=== PATIENT | female | born 1990 | race Caucasian/White ===

== ENCOUNTER 2018-07-17 10:39 | Emergency (ER) | payer MEDICAID ==
[2018-07-17] MEDS ORDERED: Lidocaine 2% Viscous Solution 15 ML Cup PO ONE (11:06)
[2018-07-17] MEDS ORDERED: Benzocaine 20% Topical Spray UD MUCMEM ONE (11:06)
--- NOTE | 2018-07-17 11:34 | EDM.PDOC ---
ED HPI GENERAL MEDICAL PROBLEM - General Chief Complaint: General Stated Complaint: TOOTH INFECTION Time Seen by Provider: 07/17/18 11:04 Source of Information: Reports: Patient History Limitations: Reports: No Limitations - History of Present Illness INITIAL COMMENTS - FREE TEXT/NARRATIVE: HISTORY AND PHYSICAL: History of present illness: Patient is a 28-year-old female who presents to the ED today with concern of chest pain for 3 months. Patient states she has an appointment with the dentist in a few weeks and states that the tooth has a small crack in it and is causing her discomfort. She states she has taken ibuprofen and Anbesol [id number] without relief of her symptoms. Patient states she is also having vaginal discharge which she is concerned about an STD. Patient states she has had multiple sexual partners. Patient states she does have a history of bacterial vaginosis and that her complaints today are similar to when she was diagnosed with bacterial vaginosis. Patient denies any other symptoms at this time. Patient denies fever, chills, chest pain, shortness of breath, or cough. Denies headache, neck stiff ness, change in vision, syncope, or near syncope. Denies nausea, vomiting, abdominal pain, diarrhea, constipation, or dysuria. Has not noted any blood in urine or stool. Patient has been eating and drinking appropriately. Review of systems: As per history of present illness and below otherwise all systems reviewed and negative. Past medical history: As per history of present illness and as reviewed below otherwise noncontributory. Surgical history: As per history of present illness and as reviewed below otherwise noncontributory. Social history: See social history for further information Family history: As per history of present illness and as reviewed below otherwise noncontributory. Physical exam: General: Patient is alert, oriented, and in no acute distress. Patient sitting comfortably on exam table. HEENT: Atraumatic, normocephalic, pupils equal and reactive bilaterally, negative for conjunctival pallor or scleral icterus, mucous membranes moist, TMs normal bilaterally, throat clear, neck supple, nontender, trachea midline. No drooling or trismus noted. No meningeal signs. No hot potato voice noted. Tooth #15 is missing. Tooth #16 has a crack on it without an exposed nerve root. No evidence of infection or edema of the gumline or surrounding tooth. Generalized poor dentition. Lungs: Clear to auscultation, breath sounds equal bilaterally, chest nontender. Heart: S1S2, regular rate and rhythm without overt murmur Abdomen: Soft, nondistended, nontender. Negative for masses or hepatosplenomegaly. Negative for costovertebral tenderness. Pelvis: Stable nontender. Genitourinary: External genitalia grossly unremarkable. Mild amount of white discharge from the vaginal introitus. Rectal: Deferred. Skin: Intact, warm, dry. No lesions or rashes noted. Extremities: Atraumatic, negative for cords or calf pain. Neurovascular unremarkable. Neuro: Awake, alert, oriented. Cranial nerves II through XII unremarkable. Cerebellum unremarkable. Motor and sensory unremarkable throughout. Exam nonfocal. Notes: List of dentists provided with patient. Discussed the importance for follow-up with a primary care provider and with a dentist for definitive treatment. Voices understanding and is agreeable to plan of care. Denies any further questions or concerns at this time. Diagnostics: Gonorrhea, chlamydia, affirm Therapeutics: Dental balls, metronidazole Prescription: Diclofenac Impression: Fractured tooth Trichomoniasis vaginosis Plan: 1. Please take medication as prescribed. 2. Tylenol as directed and as needed for pain management. 3. "Tooth Balls" have been given to you; apply along the gumline every 2-3 hours as needed. Do not swallow these; external use only. 4. Follow-up with a dentist for definitive care. Follow follow-up with the primary care provider/womens health as discussed. Return to the ED as needed and as discussed. Definitive disposition and diagnosis as appropriate pending reevaluation and review of above. 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: Musculoskeletal History: Reports: None Neurological History: Reports: None Psychiatric History: Reports: None Endocrine/Metabolic History: Reports: None Hematologic History: Reports: None Immunologic History: Reports: None Oncologic (Cancer) History: Reports: None Dermatologic History: Reports: None - Infectious Disease History Infectious Disease History: Reports: None - Past Surgical History Head Surgeries/Procedures: Reports: None Social & Family History - Family History Family Medical History: Noncontributory - Tobacco Use Smoking Status *Q: Current Every Day Smoker Years of Tobacco use: 5 Packs/Tins Daily: 1 - Caffeine Use Caffeine Use: Reports: Coffee - Recreational Drug Use Recreational Drug Use: Yes Drug Use in Last 12 Months: Yes Recreational Drug Type: Reports: Methamphetamine Recreational Drug Last Use: 65 days ED ROS GENERAL - Review of Systems Review Of Systems: ROS reveals no pertinent complaints other than HPI. ED EXAM, GENERAL - Physical Exam Exam: See Below (See dictation) Course - Vital Signs Last Recorded V/S: Last Vital Signs Temp 36.2 C 07/17/18 11:10 Pulse 100 07/17/18 11:10 Resp 16 07/17/18 11:10 BP 115/71 07/17/18 11:10 Pulse Ox 98 07/17/18 11:10 - Orders/Labs/Meds Orders: Active Orders 24 hr Category Date Time Status CHLAMYDIA AND GONORRHEA BY [facility] Stat Lab 07/17/18 11:16 Ordered Labs: Laboratory Tests 07/17/18 Range/Units 11:35 Lulu species DNA NEGATIVE (NEGATIVE) Gardnerella DNA Probe NEGATIVE (NEGATIVE) Trichomonas DNA Probe POSITIVE H (NEGATIVE) Meds: Medications Discontinued Medications Generic Name Dose Route Start Last Admin Trade Name Freq PRN Reason Stop Dose Admin Benzocaine 2 each 07/17/18 11:06 07/17/18 11:41 Hurricaine One 20% MUCMEM 07/17/18 11:07 2 each ONETIME ONE Administration Lidocaine HCl 15 ml 07/17/18 11:06 07/17/18 11:41 Xylocaine 2% Viscous PO 07/17/18 11:07 15 ml ONETIME ONE Administration Metronidazole 2,000 mg 07/17/18 12:45 Metronidazole PO 07/17/18 12:46 NOW ONE Departure - Departure Time of Disposition: 12:47 Disposition: Home, Self-Care 01 Clinical Impression: Trichomoniasis of vagina Tooth fracture Qualifiers: Encounter type: initial encounter Fracture type: closed Qualified Code(s): S02.5XXA - Fracture of tooth (traumatic), initial encounter for closed fracture - Discharge Information Prescriptions: Diclofenac Sodium [Voltaren] 75 mg PO BIDMEALS PRN #12 tab.cr PRN Reason: Pain Instructions: Trichomoniasis Referrals: PCP,Unknown [Primary Care Provider] - Forms: ED Department Discharge Additional Instructions: The following information is given to patients seen in the emergency department who are being discharged to home. This information is to outline your options for follow-up care. We provide all patients seen in our emergency department with a follow-up referral. The need for follow-up, as well as the timing and circumstances, are variable depending upon the specifics of your emergency department visit. If you don't have a primary care physician on staff, we will provide you with a referral. We always advise you to contact your personal physician following an emergency department visit to inform them of the circumstance of the visit and for follow-up with them and/or the need for any referrals to a consulting specialist. The emergency department will also refer you to a specialist when appropriate. This referral assures that you have the opportunity for follow-up care with a specialist. All of these measure are taken in an effort to provide you with optimal care, which includes your follow-up. Under all circumstances we always encourage you to contact your private physician who remains a resource for coordinating your care. When calling for follow-up care, please make the office aware that this follow-up is from your recent emergency room visit. If for any reason you are refused follow-up, please contact the [facility] Emergency Department at and asked to speak to the emergency department charge nurse. [facility] [address] [place] [id number] [facility] [address] [place] [id number] [facility] [address] [place] [address] 1. Please take medication as prescribed. 2. Tylenol as directed and as needed for pain management. 3. "Tooth Balls" have been given to you; apply along the gumline every 2-3 hours as needed. Do not swallow these; external use only. 4. Follow-up with a dentist for definitive care. Follow follow-up with the primary care provider/womens health as discussed. Return to the ED as needed and as discussed. - My Orders Last 24 Hours: My Active Orders 07/17/18 11:16 CHLAMYDIA AND GONORRHEA BY [facility] Stat - Assessment/Plan Last 24 Hours: My Active Orders 07/17/18 11:16 CHLAMYDIA AND GONORRHEA BY [facility] Stat
[2018-07-17] MEDS ORDERED: metroNIDAZOLE 250 MG Tab PO ONE (12:45)
== END 2018-07-17 12:59 | disposition home or self-care (01) ==
LOC: MW.ED 10:39
DX: K03.81 Cracked tooth (principal); A59.01 Trichomonal vulvovaginitis; F17.210 Nicotine dependence, cigarettes, uncomplicated
CPT/HCPCS: 87480; 87491; 87510; 87591; 87660; 99283; A9270

== ENCOUNTER 2018-09-12 15:22 | Emergency (ER) | payer SELFPAY ==
--- NOTE | 2018-09-12 15:54 | EDM.PDOC ---
ED HPI GENERAL MEDICAL PROBLEM - General Chief Complaint: Skin Complaint Stated Complaint: RASH Time Seen by Provider: 09/12/18 15:27 Source of Information: Reports: Patient History Limitations: Reports: No Limitations - History of Present Illness INITIAL COMMENTS - FREE TEXT/NARRATIVE: History of present illness: []Patient has a history of eczema and has a flareup of her abdomen, scalp and under her breasts. She also has plaques on her scalp that are very itchy. She states she started getting them 3 months ago she moved to [place]. She also states that she used shampoo that helped for them was pink when she lived in [place], however. Review of systems: As per history of present illness and below otherwise all systems reviewed and negative. Past medical history: As per history of present illness and as reviewed below otherwise noncontributory. Surgical history: As per history of present illness and as reviewed below otherwise noncontributory. Social history: No reported history of drug or alcohol abuse. Family history: As per history of present illness and as reviewed below otherwise noncontributory. Physical exam: General: Well developed, well nourished in NAD HEENT: Atraumatic, normocephalic, pupils reactive, negative for conjunctival pallor or scleral icterus, mucous membranes moist, throat clear, neck supple, nontender, trachea midline. Lungs: Clear to auscultation, breath sounds equal bilaterally, chest nontender. Heart: S1S2, regular, negative for clicks, rubs, or JVD. Abdomen: NABS, Soft, nondistended, nontender. Negative for masses or hepatosplenomegaly. Negative for costovertebral tenderness. Pelvis: Stable nontender. Genitourinary: Deferred. Rectal: Deferred. Extremities: Atraumatic, negative for cords or calf pain. Neurovascular unremarkable. Neuro: Awake, alert, oriented. Cranial nerves II through XII unremarkable. Cerebellum unremarkable. Motor and sensory unremarkable throughout. Exam nonfocal. Skin: Multiple erythematous blotchy lesions on her lower abdomen and under her breasts. She also has thick scaly plaques on her scalp Diagnostics: None Therapeutics: None ED Course: Stable Impression: Eczema clear Prescriptions: Medrol dose pack Plan: Follow-up with life agent. Definitive disposition and diagnosis as appropriate pending reevaluation and review of above. 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: Musculoskeletal History: Reports: None Neurological History: Reports: None Psychiatric History: Reports: None Endocrine/Metabolic History: Reports: None Hematologic History: Reports: None Immunologic History: Reports: None Oncologic (Cancer) History: Reports: None Dermatologic History: Reports: None - Infectious Disease History Infectious Disease History: Reports: Chicken Pox - Past Surgical History Head Surgeries/Procedures: Reports: None Female Surgical History: Reports: Tubal Ligation Social & Family History - Family History Family Medical History: Noncontributory - Tobacco Use Smoking Status *Q: Current Every Day Smoker Years of Tobacco use: 9 Packs/Tins Daily: 0.2 - Caffeine Use Caffeine Use: Reports: Coffee - Recreational Drug Use Recreational Drug Use: No ED ROS GENERAL - Review of Systems Review Of Systems: See Below ED EXAM, SKIN/RASH Exam: See Below Course - Vital Signs Last Recorded V/S: Last Vital Signs Temp 98.2 F 09/12/18 15:37 Pulse 93 09/12/18 15:37 Resp 18 09/12/18 15:37 BP 124/86 09/12/18 15:37 Pulse Ox 96 09/12/18 15:37 Departure - Departure Time of Disposition: 15:51 Disposition: Home, Self-Care 01 Condition: Good Clinical Impression: Eczema intertrigo - Discharge Information *PRESCRIPTION DRUG MONITORING PROGRAM REVIEWED*: No *COPY OF PRESCRIPTION DRUG MONITORING REPORT IN PATIENT BELIA: No Prescriptions: methylPREDNISolone [Medrol] 4 mg PO ASDIRECTED #1 dosepk Instructions: Intertrigo, [id number] Referrals: PCP,Unknown [Primary Care Provider] - Forms: ED Department Discharge Additional Instructions: The following information is given to patients seen in the emergency department who are being discharged to home. This information is to outline your options for follow-up care. We provide all patients seen in our emergency department with a follow-up referral. The need for follow-up, as well as the timing and circumstances, are variable depending upon the specifics of your emergency department visit. If you don't have a primary care physician on staff, we will provide you with a referral. We always advise you to contact your personal physician following an emergency department visit to inform them of the circumstance of the visit and for follow-up with them and/or the need for any referrals to a consulting specialist. The emergency department will also refer you to a specialist when appropriate. This referral assures that you have the opportunity for follow-up care with a specialist. All of these measure are taken in an effort to provide you with optimal care, which includes your follow-up. Under all circumstances we always encourage you to contact your private physician who remains a resource for coordinating your care. When calling for follow-up care, please make the office aware that this follow-up is from your recent emergency room visit. If for any reason you are refused follow-up, please contact the [facility] Emergency Department at and asked to speak to the emergency department charge nurse. [facility] [address] [place] [id number]
== END 2018-09-12 16:09 | disposition home or self-care (01) ==
LOC: MW.ED 15:22
DX: L30.4 Erythema intertrigo (principal); F17.210 Nicotine dependence, cigarettes, uncomplicated
CPT/HCPCS: 99282

== ENCOUNTER 2020-01-17 07:32 | Emergency (ER) | payer MEDICAID ==
[2020-01-17] MEDS ORDERED: Ibuprofen 400 MG Tab PO ONE (08:03)
[2020-01-17] MEDS ORDERED: Acetaminophen 500 MG Tab PO ONE (08:03)
--- NOTE | 2020-01-17 08:06 | EDM.PDOC ---
[facility] GENERAL MEDICAL PROBLEM - General Chief Complaint: Abdominal Pain Stated Complaint: ABDOMINAL PAIN Time Seen by Provider: 01/17/20 07:33 Source of Information: Reports: Patient, Old Records History Limitations: Reports: No Limitations - History of Present Illness INITIAL COMMENTS - FREE TEXT/NARRATIVE: There is a very pleasant 29-year-old female with a past medical history of psoriasis presenting with chronic abdominal pain. She reports a 1 year history of intermittent bilateral lower abdominal pain described as "pressure". It radiates to her sides/flanks. She has not sought any medical attention up to this point. She states that the pain got worse this morning, which prompted her to come to the emergency department. She has not been taking any medications at home to treat her pain. She denies any fever, nausea, vomiting, diarrhea, bloody stools, vaginal bleeding or discharge, vaginal lesions, prior history of STIs, dysuria, hematuria. ROS: A 10-point review of systems was negative, except as noted in the HPI (or in the ROS section of this note). Past medical history: Reviewed, no additional pertinent history. Surgical history: Reviewed in system, no additional pertinent history. Social history: Reviewed in system, no additional pertinent history. Family history: Reviewed in system, no additional pertinent history. PHYSICAL EXAM Vital signs reviewed. Nursing notes reviewed. Constitutional: Awake, alert, non-distressed. Head: Normocephalic, atraumatic. Eyes: EOMI, conjunctiva normal, no discharge, no scleral icterus. Ears, Nose, Throat: External ears and nose normal, moist oral mucosa. Cardiovascular: 2+ radial pulse, capillary refill less than 2 seconds. Pulmonary: normal work of breathing, no accessory muscle use. Abdomen/GI: Soft, nontender, nondistended, no guarding or rigidity, no masses. No CVA tenderness. Musculoskeletal: No deformities. Integumentary: Appropriate color for ethnicity, warm, dry, no pallor or jaundice, no rash. Neurologic: Alert, answering questions appropriately, normal speech, no facial droop, moving all extremities well. Psychiatric: Appropriate mood and affect, normal thought process. This patient was seen and evaluated during the 2019 SARS-CoV-2 novel coronavirus pandemic period. Community viral transmission is ongoing at time of this encounter and the emergency department is operating under pandemic response procedures. Lower Bilateral Abdominal Pain Score (Numeric/FACES): 7 - Related Data Allergies Allergy/AdvReac Type Severity Reaction Status Date / Time No Known Allergies Allergy Verified 01/17/20 07:46 Home Meds: Home Meds Salicylic Acid [Psoriasis Medicated] 01/17/20 [History] Past Medical History - Past Health History Medical/Surgical History: Denies Medical/Surgical History HEENT History: Reports: None Cardiovascular History: Reports: None Respiratory History: Reports: None Gastrointestinal History: Reports: None Genitourinary History: Reports: None [employer] History: Reports: Musculoskeletal History: Reports: None Neurological History: Reports: None Psychiatric History: Reports: None Endocrine/Metabolic History: Reports: None Hematologic History: Reports: None Immunologic History: Reports: None Oncologic (Cancer) History: Reports: None Dermatologic History: Reports: Psoriasis - Infectious Disease History Infectious Disease History: Reports: Chicken Pox - Past Surgical History Head Surgeries/Procedures: Reports: None Female Surgical History: Reports: Tubal Ligation Social & Family History - Family History Family Medical History: No Pertinent Family History - Caffeine Use Caffeine Use: Reports: Coffee - Recreational Drug Use Recreational Drug Use: No ED ROS GENERAL - Review of Systems Review Of Systems: See Below ED EXAM, GI/ABD - Physical Exam Exam: See Below Course - Vital Signs Text/Narrative:: Patient hemodynamically stable, afebrile, well-appearing, looks nontoxic. Differential diagnosis includes but is not limited to: Chronic abdominal pain, functional abdominal pain, UTI, pyelonephritis, less likely ovarian cyst, less likely TOA, epiploic appendagitis, low suspicion for intra-abdominal surgical emergency or infection, and many others. 805: Urinalysis is bland and urine test is negative. Ordered acetaminophen and ibuprofen, labs, CT scan of the abdomen/pelvis. 903: CBC shows normal cell lines. Normal electrolytes and renal function. AST and ALT mildly elevated but not alarmingly so. Urinalysis is bland, no evidence of infection. Urine test is negative. Awaiting CT scan. 1020: CT abdomen/pelvis shows mild prolapse of the urinary bladder, dominant follicle versus small cysts in the left ovary, otherwise no acute or significant abnormal findings. Given that her lower abdominal pain is bilateral and not worse on one side compared to the other, I do not think we need to obtain a pelvic ultrasound study today. No evidence of infection, her abdomen is soft and nontender. Low suspicion for an intra-abdominal surgical emergency or infectious process at this point. Given chronicity of symptoms and negative work-up, patient is stable to dis charge home to follow-up with a primary care clinic. Recommended [id number] acetaminophen and ibuprofen as needed for pain along with a heating pad in the meantime. Plan: Patient is stable to discharge home with outpatient primary care clinic follow-up. Strict emergency department return precautions were provided, patient indicated understanding. All questions were answered prior to depa rture. Discharged in good condition. Last Recorded V/S: Last Vital Signs Temp 36.4 C 01/17/20 07:47 Pulse 71 01/17/20 07:47 Resp 15 01/17/20 07:47 BP 115/76 01/17/20 07:47 Pulse Ox 99 01/17/20 07:47 - Orders/Labs/Meds Orders: Active Orders 24 hr Category Date Time Status Nothing Per Oral Diet [DIET] Diet 01/17/20 Breakfast Active Labs: Laboratory Tests 01/17/20 01/17/20 01/17/20 Range/Units 07:35 07:35 08:15 WBC 5.46 (4.0-11.0) K/uL RBC 4.70 (4.30-5.90) M/uL Hgb 14.0 (12.0-16.0) g/dL Hct 42.5 (36.0-46.0) % MCV 90.4 (80.0-98.0) fL MCH 29.8 (27.0-32.0) pg MCHC 32.9 (31.0-37.0) g/dL RDW Std Deviation 42.3 (28.0-62.0) fl RDW Coeff of Quang 13 (11.0-15.0) % Plt Count 223 (150-400) K/uL MPV 9.50 (7.40-12.00) fL Neut % (Auto) 49.7 (48.0-80.0) % Lymph % (Auto) 31.5 (16.0-40.0) % [place] % (Auto) 9.3 (0.0-15.0) % Eos % (Auto) 8.8 H (0.0-7.0) % Baso % (Auto) 0.7 (0.0-1.5) % Neut # (Auto) 2.7 (1.4-5.7) K/uL Lymph # (Auto) 1.7 (0.6-2.4) K/uL Pickens # (Auto) 0.5 (0.0-0.8) K/uL Eos # (Auto) 0.5 (0.0-0.7) K/uL Baso # (Auto) 0.0 (0.0-0.1) K/uL Nucleated RBC % 0.0 /100WBC Nucleated RBCs # 0 K/uL Sodium (136-145) mmol/L Potassium (3.5-5.1) mmol/L Chloride (98-107) mmol/L Carbon Dioxide (21.0-32.0) mmol/L BUN (7.0-18.0) mg/dL Creatinine (0.6-1.0) mg/dL Est Cr Clr Drug Dosing mL/min Estimated GFR (MDRD) ml/min Glucose (74-106) mg/dL Calcium (8.5-10.1) mg/dL Total Bilirubin (0.2-1.0) mg/dL AST (15-37) IU/L ALT (14-63) IU/L Alkaline Phosphatase (46-116) U/L Total Protein (6.4-8.2) g/dL Albumin (3.4-5.0) g/dL Globulin (2.6-4.0) g/dL Albumin/Globulin Ratio (0.9-1.6) Urine Color YELLOW Urine Appearance CLEAR Urine pH 6.0 (5.0-8.0) Ur Specific [place] >= 1.030 (1.001-1.035) Urine Protein NEGATIVE (NEGATIVE) mg/dL Urine Glucose (UA) NEGATIVE (NEGATIVE) mg/dL Urine Ketones NEGATIVE (NEGATIVE) mg/dL Urine Occult Blood NEGATIVE (NEGATIVE) Urine Nitrite NEGATIVE (NEGATIVE) Urine Bilirubin NEGATIVE (NEGATIVE) Urine Urobilinogen 0.2 (<2.0) EU/dL Ur Leukocyte Esterase NEGATIVE (NEGATIVE) Urine HCG, Qual NEGATIVE (NEGATIVE) 01/17/20 Range/Units 08:15 WBC (4.0-11.0) K/uL RBC (4.30-5.90) M/uL Hgb (12.0-16.0) g/dL Hct (36.0-46.0) % MCV (80.0-98.0) fL MCH (27.0-32.0) pg MCHC (31.0-37.0) g/dL RDW Std Deviation (28.0-62.0) fl RDW Coeff of Quang (11.0-15.0) % Plt Count (150-400) K/uL MPV (7.40-12.00) fL Neut % (Auto) (48.0-80.0) % Lymph % (Auto) (16.0-40.0) % Pickens % (Auto) (0.0-15.0) % Eos % (Auto) (0.0-7.0) % Baso % (Auto) (0.0-1.5) % Neut # (Auto) (1.4-5.7) K/uL Lymph # (Auto) (0.6-2.4) K/uL Pickens # (Auto) (0.0-0.8) K/uL Eos # (Auto) (0.0-0.7) K/uL Baso # (Auto) (0.0-0.1) K/uL Nucleated RBC % /100WBC Nucleated RBCs # K/uL Sodium 140 (136-145) mmol/L Potassium 4.2 (3.5-5.1) mmol/L Chloride 106 (98-107) mmol/L Carbon Dioxide 28.6 (21.0-32.0) mmol/L BUN 15 (7.0-18.0) mg/dL Creatinine 0.7 (0.6-1.0) mg/dL Est Cr Clr Drug Dosing 92.10 mL/min Estimated GFR (MDRD) > 60.0 ml/min Glucose 109 H (74-106) mg/dL Calcium 9.0 (8.5-10.1) mg/dL Total Bilirubin 0.4 (0.2-1.0) mg/dL AST 51 H (15-37) IU/L ALT 117 H (14-63) IU/L Alkaline Phosphatase 57 (46-116) U/L Total Protein 7.7 (6.4-8.2) g/dL Albumin 3.8 (3.4-5.0) g/dL Globulin 3.9 (2.6-4.0) g/dL Albumin/Globulin Ratio 1.0 (0.9-1.6) Urine Color Urine Appearance Urine pH (5.0-8.0) Ur Specific [place] (1.001-1.035) Urine Protein (NEGATIVE) mg/dL Urine Glucose (UA) (NEGATIVE) mg/dL Urine Ketones (NEGATIVE) mg/dL Urine Occult Blood (NEGATIVE) Urine Nitrite (NEGATIVE) Urine Bilirubin (NEGATIVE) Urine Urobilinogen (<2.0) EU/dL Ur Leukocyte Esterase (NEGATIVE) Urine HCG, Qual (NEGATIVE) Meds: Medications Discontinued Medications Generic Name Dose Route Start Last Admin Trade Name Freq PRN Reason Stop Dose Admin Acetaminophen 1,000 mg 01/17/20 08:03 01/17/20 08:11 Tylenol Extra Strength PO 01/17/20 08:04 1,000 mg ONETIME ONE Administration Ibuprofen 400 mg 01/17/20 08:03 01/17/20 08:11 Motrin PO 01/17/20 08:04 400 mg ONETIME ONE Administration Iopamidol 100 ml 01/17/20 09:20 01/17/20 09:21 Isovue Multipack-370 (76%) IVPUSH 01/17/20 09:21 100 ml ONETIME ONE Administration Departure - Departure Time of Disposition: 10:21 Disposition: Home, Self-Care 01 Condition: Good Clinical Impression: Chronic bilateral lower abdominal pain - Discharge Information *PRESCRIPTION DRUG MONITORING PROGRAM REVIEWED*: Not Applicable *COPY OF PRESCRIPTION DRUG MONITORING REPORT IN PATIENT BELIA: Not Applicable Instructions: Abdominal Pain, Adult, Chronic Pain, Adult Referrals: [facility] - Family Practice [Provider Group] - 1 Week (For follow-up of symptoms.) Forms: ED Department Discharge Additional Instructions: You were seen in the emergency department for abdominal pain. At this point, your vital signs, blood work, urine test, and CT scan are all reassuring. I do not see a dangerous cause for your abdominal pain at this point. I am comfortable letting you go home to follow-up with the family medicine clinic in the next week or so for reevaluation. You can take [id number] acetaminophen or ibuprofen as directed on package for pain, you can also try heating pad. Warning signs to come back to the ER include: Worsening abdominal pain, lightheadedness, bloody stools or vomit, fever, or any other new or concerning symptoms. Please return the emergency department immediately if your symptoms worsen or if you feel worse. Thank you for choosing the [facility] emergency department in [place] for your medical needs today. It was a pleasure caring for you. The following information is given to patients seen in the emergency department who are being discharged. This information is to outline your options for follow-up care. We provide all patients seen in our emergency department with a follow-up referral. The need for follow-up, as well as the timing and circumstances, are variable depending upon the specifics of your emergency department visit. If you don't have a primary care physician on staff, we will provide you with a referral. We always advise you to contact your personal physician following an emergency department visit to inform them of the circumstance of the visit and for follow-up with them and/or the need for any referrals to a consulting specialist. The emergency department will also refer you to a specialist when appropriate. This referral assures that you have the opportunity for follow-up care with a specialist. All of these measure are taken in an effort to provide you with optimal care, which includes your follow-up. Under all circumstances we always encourage you to contact your private physician who remains a resource for coordinating your care. When calling for follow-up care, please make the office aware that this follow-up is from your recent emergency room visit. If for any reason you are refused follow-up, please contact the [facility] Emergency Department at and asked to speak to the emergency department charge nurse. If you do not have a primary care physician that is caring for you, you can contact these clinics below to set up an appointment to establish care: [facility] - Primary Care [address] [place], [place] [address], [place] [address] [facility] [address] [place] [address] Sepsis Event Note (ED) - Evaluation Sepsis Screening Result: No Definite Risk - Focused Exam Vital Signs: Vital Signs Temp Pulse Resp BP Pulse Ox 01/17/20 07:47 36.4 C 71 15 115/76 99 - My Orders Last 24 Hours: My Active Orders 01/17/20 Breakfast Nothing Per Oral Diet [DIET] - Assessment/Plan Last 24 Hours: My Active Orders 01/17/20 Breakfast Nothing Per Oral Diet [DIET]
[2020-01-17 08:55] LABS: BLOOD UREA NITROGEN,BUN 15 mg/dL (7.0-18.0); CARBON DIOXIDE,CO2 28.6 mmol/L (21.0-32.0); CHLORIDE,CL 106 mmol/L (98-107); GLUCOSE RANDOM 109 mg/dL (74-106); POTASSIUM,K 4.2 mmol/L (3.5-5.1); SODIUM,NA 140 mmol/L (136-145)
[2020-01-17] MEDS ORDERED: Iopamidol 755 MG/ML 500 ML Multipack Bottle IVPUSH ONE (09:20)
--- NOTE | 2020-01-17 09:49 | CT ---
INDICATION: Bilateral lower abdomen and pelvic pain. TECHNIQUE: CT abdomen and pelvis acquired with 100 cc Isovue 370 IV contrast. COMPARISON: None. FINDINGS: Lower chest: Unremarkable. Liver: Unremarkable. Normal in size and attenuation. No masses. Gallbladder and bile ducts: Unremarkable. No stones or inflammation. No biliary dilatation. Pancreas: Unremarkable. No mass or inflammation. Spleen: Unremarkable. Normal in size. No masses. Adrenal glands: Unremarkable. No nodules. Kidneys: Unremarkable. No masses, stones, or hydronephrosis. GI tract: Unremarkable. Normal in caliber. No sign of mass or inflammation. Normal appendix. Vasculature: Unremarkable. Mesenteric arteries are patent. Lymph nodes: No lymphadenopathy. Omentum/Peritoneum/Abdominal Wall: Unremarkable. No sign of mass or infiltration. No free air or significant free fluid. Pelvis: Mild prolapse of the urinary bladder. Dominant follicle versus small cyst is in the left ovary. Otherwise unremarkable pelvis. Bones: Unremarkable for age. IMPRESSION: 1. Mild urinary bladder prolapse and small cyst versus dominant follicle in the left ovary without evidence of rupture. 2. Remainder of the exam is unremarkable. No other finding to explain lower abdomen or pelvic pain. Please note that all CT scans at this facility use dose modulation, iterative reconstruction, and/or weight-based dosing when appropriate to reduce radiation dose to as low as reasonably achievable. Dictated by Arian Villarreal MD @ Jan 17 2020 9:40AM Signed by Dr. Arian Villarreal @ Jan 17 2020 9:49AM
== END 2020-01-17 10:49 | disposition home or self-care (01) ==
LOC: MW.ED 07:32
DX: R10.31 Right lower quadrant pain (principal); R10.32 Left lower quadrant pain; G89.29 Other chronic pain; R74.01 Elevation of levels of liver transaminase levels; R79.89 Other specified abnormal findings of blood chemistry; Z98.51 Tubal ligation status
CPT/HCPCS: 36415; 74177; 80053; 81003; 81025; 85025; 99284; A9270; Q9967; 99282

== ENCOUNTER 2020-04-19 10:05 | Emergency (ER) | payer MEDICAID ==
--- NOTE | 2020-04-19 10:23 | EDM.PDOC ---
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 She reports that yesterday she started her regular menses although had noticed it was quite heavier than normal. She has had chronic abdominal pain for approximately 10 years and has not really had this looked at at a primary care provider or specialist. She is not so much worried about today's abdominal pain but states it is more low pelvic discomfort and is worse with sex. Denies any recent injury, trauma or vigorous intercourse that would cause injury. She denies any vaginal discharge or concerns of STIs. Patient denies any fever, chills, headache, change in vision, syncope or near syncope. Denies any chest pain, back pain, shortness of breath or cough. Denies any abdominal pain, nausea, vomiting, diarrhea, constipation or dysuria. Has not noted any blood in urine or stool. Patient has been eating and drinking appropriately. Review of systems: As per history of present illness and below otherwise all systems reviewed and negative. Past medical history: As per history of present illness and as reviewed below otherwise noncontributory. Surgical history: As per history of present illness and as reviewed below otherwise noncontributory. Social history: See social history for further information Family history: As per history of present illness and as reviewed below otherwise noncontributory. Physical exam: General: Well developed and well nourished 30-year-old female. Alert and orientated x 3. Nontoxic in appearance and in no acute distress. Vital signs are stable and have been reviewed by me. Nursing notes were reviewed. HEENT: Atraumatic, normocephalic, pupils equal and reactive bilaterally, negative for conjunctival pallor or scleral icterus, mucous membranes moist, TMs normal bilaterally, throat clear, neck supple, nontender, trachea midline. No drooling or trismus noted. No meningeal signs. No hot potato voice noted. Lungs: Clear to auscultation bilaterally. No wheezes, rales, or rhonchi. Chest nontender. Normal work of breathing, no accessory muscles used. Heart: S1S2, regular rate and rhythm without overt murmur, gallops, or rubs. No JVD. No peripheral edema Abdomen: Soft, nondistended, nontender. Normoactive bowel sounds. Negative for masses or costovertebral tenderness. Genitourinary/Rectal: This was done with consent and a database designer at the bedside. Normal appearing external genitalia. Cervical os is closed with mild amount of blood in the vaginal vault. No obvious discharge is noted. Swab/cultures were sent to lab with patient consent. No cervical motion tenderness or adnexal tenderness. Skin: Intact, warm, dry. No lesions or rashes noted. Hematologic: No petechiae or purpra. Mucosa appropriate color and normal nail bed color and refill. Extremities: Atraumatic, moves all extremities per self without difficulty or deficits, negative for cords or calf pain. Neurovascular unremarkable. Neuro: Awake, alert, oriented. Cranial nerves II through XII unremarkable. Cerebellum unremarkable. Motor and sensory unremarkable throughout. Exam nonfocal. Psychiatric: Mood and affect are appropriate. Normal thought process. Answering questions appropriately. Notes: *This patient was seen and evaluated during the 2019 SARS-CoV-2 novel coronavirus pandemic period. Community viral transmission is ongoing at time of this encounter and the emergency department is operating under pandemic response procedures. Pelvic exam was done, she does not have significant vaginal bleeding. Although she is fairly confident that she has no concerns for STD she is agreeable to letting me obtain samples to send to lab. Lab work is within normal limits, she does have a history of elevated liver enzymes, this is better than her last lab draw. Ultrasound shows that the endometrium is thickened up to 14 millimeters but otherwise normal in appearance. The left ovary is not visualized. DENISE shows BV; will treat with flagyl. She states she has not seen a primary care provider or had any type of Pap smear that she can recall. I did encourage her to establish care with a primary care provider she states she does have chronic abdominal pain. Phone numbers have been given to her to set this up. I have talked with the patient about today's findings, in addition to providing specific details for plan of care. Reassessment at the time of disposition demonstrates that the patient is in no acute distress. The patient is stable for discharge, counseling was provided and we discussed in great detail signs and symptoms that would prompt them to return to the Emergency Department. Medication, follow up and supportive care measures were reviewed and discussed. Voices understanding and is agreeable to plan of care. Denies any further questions or concerns at this time. Diagnostics: CBC, CMP, UA, HCGU, Khoi/Chlam, DENISE Therapeutics: Flagyl Prescription: Flagyl Impression: Bacterial Vaginosis Plan: 1. NO sex during treatment of the BV (treatment will be ineffective). The Gonorrhea and Chlamydia are send outs, we will call you if those require treatment. I would like you for routine OBGYN care such as a PAP smear, which we don't do in the ED. 2. You can alternate Tylenol and ibuprofen as needed for pain and fever management. 4. If your symptoms should worsen, new symptoms develop or any of the signs and symptoms we discussed should arise please return to the emergency room or call 911 (if needed). Definitive disposition and diagnosis as appropriate pending reevaluation and review of above. 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: Musculoskeletal History: Reports: None Neurological History: Reports: None Psychiatric History: Reports: None Endocrine/Metabolic History: Reports: None Hematologic History: Reports: None Immunologic History: Reports: None Oncologic (Cancer) History: Reports: None Dermatologic History: Reports: Psoriasis - Infectious Disease History Infectious Disease History: Reports: Chicken Pox - Past Surgical History Head Surgeries/Procedures: Reports: None Female Surgical History: Reports: Tubal Ligation Social & Family History - Family History Family Medical History: No Pertinent Family History - Caffeine Use Caffeine Use: Reports: Coffee ED ROS GENERAL - Review of Systems Review Of Systems: Comprehensive ROS is negative, except as noted in HPI. ED EXAM, GI/ABD - Physical Exam Exam: See Below (See dictation) Course - Vital Signs Last Recorded V/S: Last Vital Signs Temp 98.2 F 04/19/20 10:10 Pulse 103 H 04/19/20 10:10 Resp 18 04/19/20 10:10 BP 142/93 H 04/19/20 10:10 Pulse Ox 96 04/19/20 10:10 - Orders/Labs/Meds Orders: Active Orders 24 hr Category Date Time Status Pelvis Non OB Comp [US] Stat Exams 04/19/20 10:24 Taken CHLAMYDIA AND GONORRHEA BY TMA Stat Lab 04/19/20 10:20 Received Labs: Laboratory Tests 04/19/20 04/19/20 04/19/20 Range/Units 10:20 10:20 10:20 WBC (4.0-11.0) K/uL RBC (4.30-5.90) M/uL Hgb (12.0-16.0) g/dL Hct (36.0-46.0) % MCV (80.0-98.0) fL MCH (27.0-32.0) pg MCHC (31.0-37.0) g/dL RDW Std Deviation (28.0-62.0) fl RDW Coeff of Quang (11.0-15.0) % Plt Count (150-400) K/uL MPV (7.40-12.00) fL Neut % (Auto) (48.0-80.0) % Lymph % (Auto) (16.0-40.0) % [place] % (Auto) (0.0-15.0) % Eos % (Auto) (0.0-7.0) % Baso % (Auto) (0.0-1.5) % Neut # (Auto) (1.4-5.7) K/uL Lymph # (Auto) (0.6-2.4) K/uL [place] # (Auto) (0.0-0.8) K/uL Eos # (Auto) (0.0-0.7) K/uL Baso # (Auto) (0.0-0.1) K/uL Nucleated RBC % /100WBC Nucleated RBCs # K/uL Sodium (136-145) mmol/L Potassium (3.5-5.1) mmol/L Chloride (98-107) mmol/L Carbon Dioxide (21.0-32.0) mmol/L BUN (7.0-18.0) mg/dL Creatinine (0.6-1.0) mg/dL Est Cr Clr Drug Dosing mL/min Estimated GFR (MDRD) ml/min Glucose (74-106) mg/dL Calcium (8.5-10.1) mg/dL Total Bilirubin (0.2-1.0) mg/dL AST (15-37) IU/L ALT (14-63) IU/L Alkaline Phosphatase (46-116) U/L Total Protein (6.4-8.2) g/dL Albumin (3.4-5.0) g/dL Globulin (2.6-4.0) g/dL Albumin/Globulin Ratio (0.9-1.6) Urine Color YELLOW Urine Appearance CLEAR Urine pH 6.0 (5.0-8.0) Ur Specific [place] 1.025 (1.001-1.035) Urine Protein NEGATIVE (NEGATIVE) mg/dL Urine Glucose (UA) NEGATIVE (NEGATIVE) mg/dL Urine Ketones NEGATIVE (NEGATIVE) mg/dL Urine Occult Blood LARGE H (NEGATIVE) Urine Nitrite NEGATIVE (NEGATIVE) Urine Bilirubin NEGATIVE (NEGATIVE) Urine Urobilinogen 0.2 (<2.0) EU/dL Ur Leukocyte Esterase NEGATIVE (NEGATIVE) Urine RBC 20-25 (0-2/HPF) Urine WBC 0-2 (0-5/HPF) Ur Epithelial Cells FEW (NONE-FEW) Urine Bacteria FEW (NEGATIVE) Urine Mucus MODERATE (NONE-MOD) Urine HCG, Qual NEGATIVE (NEGATIVE) Lulu species DNA NEGATIVE (NEGATIVE) Gardnerella DNA Probe POSITIVE H (NEGATIVE) Trichomonas DNA Probe NEGATIVE (NEGATIVE) 04/19/20 04/19/20 Range/Units 10:33 10:33 WBC 9.77 (4.0-11.0) K/uL RBC 4.93 (4.30-5.90) M/uL Hgb 15.0 (12.0-16.0) g/dL Hct 44.1 (36.0-46.0) % MCV 89.5 (80.0-98.0) fL MCH 30.4 (27.0-32.0) pg MCHC 34.0 (31.0-37.0) g/dL RDW Std Deviation 40.9 (28.0-62.0) fl RDW Coeff of Quang 13 (11.0-15.0) % Plt Count 219 (150-400) K/uL MPV 9.60 (7.40-12.00) fL Neut % (Auto) 75.2 (48.0-80.0) % Lymph % (Auto) 14.7 L (16.0-40.0) % [place] % (Auto) 6.0 (0.0-15.0) % Eos % (Auto) 3.7 (0.0-7.0) % Baso % (Auto) 0.4 (0.0-1.5) % Neut # (Auto) 7.3 H (1.4-5.7) K/uL Lymph # (Auto) 1.4 (0.6-2.4) K/uL [place] # (Auto) 0.6 (0.0-0.8) K/uL Eos # (Auto) 0.4 (0.0-0.7) K/uL Baso # (Auto) 0.0 (0.0-0.1) K/uL Nucleated RBC % 0.0 /100WBC Nucleated RBCs # 0 K/uL Sodium 138 (136-145) mmol/L Potassium 3.8 (3.5-5.1) mmol/L Chloride 103 (98-107) mmol/L Carbon Dioxide 24.5 (21.0-32.0) mmol/L BUN 12 (7.0-18.0) mg/dL Creatinine 0.7 (0.6-1.0) mg/dL Est Cr Clr Drug Dosing 91.25 mL/min Estimated GFR (MDRD) > 60.0 ml/min Glucose 111 H (74-106) mg/dL Calcium 8.8 (8.5-10.1) mg/dL Total Bilirubin 0.7 (0.2-1.0) mg/dL AST 50 H (15-37) IU/L ALT 93 H (14-63) IU/L Alkaline Phosphatase 55 (46-116) U/L Total Protein 8.1 (6.4-8.2) g/dL Albumin 3.8 (3.4-5.0) g/dL Globulin 4.3 H (2.6-4.0) g/dL Albumin/Globulin Ratio 0.9 (0.9-1.6) Urine Color Urine Appearance Urine pH (5.0-8.0) Ur Specific [place] (1.001-1.035) Urine Protein (NEGATIVE) mg/dL Urine Glucose (UA) (NEGATIVE) mg/dL Urine Ketones (NEGATIVE) mg/dL Urine Occult Blood (NEGATIVE) Urine Nitrite (NEGATIVE) Urine Bilirubin (NEGATIVE) Urine Urobilinogen (<2.0) EU/dL Ur Leukocyte Esterase (NEGATIVE) Urine RBC (0-2/HPF) Urine WBC (0-5/HPF) Ur Epithelial Cells (NONE-FEW) Urine Bacteria (NEGATIVE) Urine Mucus (NONE-MOD) Urine HCG, Qual (NEGATIVE) Lulu species DNA (NEGATIVE) Gardnerella DNA Probe (NEGATIVE) Trichomonas DNA Probe (NEGATIVE) Meds: Medications Discontinued Medications Generic Name Dose Route Start Last Admin Trade Name Freq PRN Reason Stop Dose Admin Metronidazole 500 mg 04/19/20 11:32 Metronidazole PO 04/19/20 11:33 ONETIME ONE Departure - Departure Time of Disposition: 12:06 Disposition: Home, Self-Care 01 Clinical Impression: Bacterial vaginosis - Discharge Information Prescriptions: metroNIDAZOLE [Flagyl] 500 mg PO BID 7 Days #14 tab Instructions: Bacterial Vaginosis, [id number] Referrals: PCP,None [Primary Care Provider] - Forms: ED Department Discharge Additional Instructions: The following information is given to patients seen in the emergency department who are being discharged to home. This information is to outline your options for follow-up care. We provide all patients seen in our emergency department with a follow-up referral. The need for follow-up, as well as the timing and circumstances, are variable depending upon the specifics of your emergency department visit. If you don't have a primary care physician on staff, we will provide you with a referral. We always advise you to contact your personal physician following an emergency department visit to inform them of the circumstance of the visit and for follow-up with them and/or the need for any referrals to a consulting specialist. The emergency department will also refer you to a specialist when appropriate. This referral assures that you have the opportunity for follow-up care with a specialist. All of these measure are taken in an effort to provide you with optimal care, which includes your follow-up. Under all circumstances we always encourage you to contact your private physician who remains a resource for coordinating your care. When calling for follow-up care, please make the office aware that this follow-up is from your recent emergency room visit. If for any reason you are refused follow-up, please contact the [facility] Emergency Department at and asked to speak to the emergency department charge nurse. [facility] [address] [place] [id number] [facility] [address] [place] [id number] Thank you for choosing the [facility] emergency department in [place] for your medical needs today. It was a pleasure caring for you. Today you were seen in the emergency department for bacterial vaginosis. 1. NO sex during treatment of the BV (treatment will be ineffective). The Gonorrhea and Chlamydia are send outs, we will call you if those require treatment. I would like you for routine OBGYN care such as a PAP smear, which we don't do in the ED. 2. You can alternate Tylenol and ibuprofen as needed for pain and fever management. 4. If your symptoms should worsen, new symptoms develop or any of the signs and symptoms we discussed should arise please return to the emergency room or call 911 (if needed). Sepsis Event Note (ED) - Focused Exam Vital Signs: Vital Signs Temp Pulse Resp BP Pulse Ox 04/19/20 10:10 98.2 F 103 H 18 142/93 H 96 - My Orders Last 24 Hours: My Active Orders 04/19/20 10:20 CHLAMYDIA AND GONORRHEA BY TMA Stat 04/19/20 10:24 Pelvis Non OB Comp [US] Stat - Assessment/Plan Last 24 Hours: My Active Orders 04/19/20 10:20 CHLAMYDIA AND GONORRHEA BY TMA Stat 04/19/20 10:24 Pelvis Non OB Comp [US] Stat
[2020-04-19 11:06] LABS: BLOOD UREA NITROGEN,BUN 12 mg/dL (7.0-18.0); CARBON DIOXIDE,CO2 24.5 mmol/L (21.0-32.0); CHLORIDE,CL 103 mmol/L (98-107); GLUCOSE RANDOM 111 mg/dL (74-106); POTASSIUM,K 3.8 mmol/L (3.5-5.1); SODIUM,NA 138 mmol/L (136-145)
[2020-04-19] MEDS ORDERED: metroNIDAZOLE 250 MG Tab PO ONE (11:32)
--- NOTE | 2020-04-19 12:03 | US ---
INDICATION: Heavy menses, pain TECHNIQUE: Ultrasound pelvis transvaginal only COMPARISON: None FINDINGS: Uterus: 9.3 centimeter x 5.7 centimeter x 5.4 centimeter. Normal echotexture of the myometrium. No masses. Endometrium: The endometrium measures 14 mm in thickness. No sign of endometrial mass or fluid. Right ovary: 3.0 centimeter x 2.1 centimeter x 2.3 centimeter no ovarian or adnexal masses. Normal arterial and venous blood flow. Left ovary: The left ovary is not visualized. Cul-de-sac: No significant free fluid. IMPRESSION: The endometrium is thickened up to 14 millimeters but otherwise normal in appearance. The left ovary is not visualized. Dictated by Tomer Hernandez MD @ Apr 19 2020 11:53AM Signed by Dr. Tomer Hernandez @ Apr 19 2020 12:02PM
[2020-04-20 15:07] LABS: C.TRACHOMATIS BY TMA Negative (Negative); N.GONORRHOEAE BY TMA Negative (Negative)
== END 2020-04-19 12:19 | disposition home or self-care (01) ==
LOC: MW.ED 10:05
DX: N76.0 Acute vaginitis (principal); B96.89 Other specified bacterial agents as the cause of diseases classified elsewhere
CPT/HCPCS: 36415; 76856; 76856-26; 80053; 81001; 81025; 85025; 87480; 87491; 87510; 87591; 87660; 99283; 99284-25

== ENCOUNTER 2020-05-04 07:19 | Day surgery (SDC) | payer MEDICAID ==
[2020-05-01 11:26] LABS: BLOOD UREA NITROGEN,BUN 15 mg/dL (7.0-18.0); CARBON DIOXIDE,CO2 27.3 mmol/L (21.0-32.0); CHLORIDE,CL 104 mmol/L (98-107); GLUCOSE RANDOM 92 mg/dL (74-106); POTASSIUM,K 4.7 mmol/L (3.5-5.1); SODIUM,NA 139 mmol/L (136-145)
[~2020-05-04 07:19] MED LIST: Lactated Ringers 1,000 ML IV SCH; Sodium Chloride 0.9% 10 ML SDV IV PRN; Sodium Chloride 0.9% 10 ML Syringe FLUSH PRN; Sodium Chloride 0.9% 2.5 ML Syringe FLUSH PRN; ceFAZolin 1 GM in Premix Bag 1 BAG IV ONE
[2020-05-04] MEDS ORDERED: Dexamethasone 4 MG/ML 5 ML MDV ONE (07:34)
[2020-05-04] MEDS ORDERED: Rocuronium Bromide 50 MG/5 ML Syringe ONE (07:34)
[2020-05-04] MEDS ORDERED: Ondansetron 4 MG/2 ML SDV ONE (07:34)
[2020-05-04] MEDS ORDERED: Lidocaine 2% 5 ML SDV ONE (07:34)
[2020-05-04] MEDS ORDERED: fentaNYL 250 MCG/5 ML SDV ONE (07:35)
[2020-05-04] MEDS ORDERED: Midazolam 1 MG/ML 2 ML SDV ONE (07:35)
[2020-05-04] MEDS ORDERED: Propofol 200 MG/20 ML SDV ONE ×2 (07:35→09:56)
[2020-05-04] MEDS ORDERED: Scopolamine 1.5 MG Transdermal Patch TRDERM PRN (07:51)
--- NOTE | 2020-05-04 07:53 | PCM.PREANE ---
Preanesthetic Assessment - Anesthesia/Transfusion/Family Hx Anesthesia History: Prior Anesthesia Without Reaction Family History of Anesthesia Reaction: No Transfusion History: No Prior Transfusion(s) Intubation History: Unknown - Review of Systems General: No Symptoms Pulmonary: No Symptoms Cardiovascular: No Symptoms Gastrointestinal: Abdominal Pain Neurological: No Symptoms Other: Reports: None - Physical Assessment Height: 5 ft 2 in Weight: 83.915 kg ASA Class: 2 Mental Status: Alert & Oriented x3 Airway Class: Mallampati = 2 Dentition: Reports: Normal Dentition Thyro-Mental Finger Breadths: 3 Mouth Opening Finger Breadths: 3 (forked tongue) ROM/Head Extension: Full Lungs: Clear to Auscultation, Normal Respiratory Effort Cardiovascular: Regular Rate, Regular Rhythm - Lab Values: Laboratory Last Values WBC 5.48 K/uL (4.0-11.0) 05/01/20 10:47 RBC 4.75 M/uL (4.30-5.90) 05/01/20 10:47 Hgb 14.3 g/dL (12.0-16.0) 05/01/20 10:47 Hct 43.4 % (36.0-46.0) 05/01/20 10:47 MCV 91.4 fL (80.0-98.0) 05/01/20 10:47 MCH 30.1 pg (27.0-32.0) 05/01/20 10:47 MCHC 32.9 g/dL (31.0-37.0) 05/01/20 10:47 RDW Std Deviation 43.4 fl (28.0-62.0) 05/01/20 10:47 RDW Coeff of Quang 13 % (11.0-15.0) 05/01/20 10:47 Plt Count 221 K/uL (150-400) 05/01/20 10:47 MPV 9.80 fL (7.40-12.00) 05/01/20 10:47 Nucleated RBC % 0.0 /100WBC 05/01/20 10:47 Nucleated RBCs # 0 K/uL 05/01/20 10:47 Sodium 139 mmol/L (136-145) 05/01/20 10:47 Potassium 4.7 mmol/L (3.5-5.1) 05/01/20 10:47 Chloride 104 mmol/L (98-107) 05/01/20 10:47 Carbon Dioxide 27.3 mmol/L (21.0-32.0) 05/01/20 10:47 BUN 15 mg/dL (7.0-18.0) 05/01/20 10:47 Creatinine 0.8 mg/dL (0.6-1.0) 05/01/20 10:47 Est Cr Clr Drug Dosing 79.85 mL/min 05/01/20 10:47 Estimated GFR (MDRD) > 60.0 ml/min 05/01/20 10:47 Glucose 92 mg/dL (74-106) 05/01/20 10:47 Calcium 9.0 mg/dL (8.5-10.1) 05/01/20 10:47 HCG, Qual NEGATIVE (NEG) 05/01/20 10:47 Blood Type O NEGATIVE 05/01/20 10:50 Antibody Screen NEGATIVE 05/01/20 10:50 - Allergies Allergies/Adverse Reactions: Allergies Allergy/AdvReac Type Severity Reaction Status Date / Time No Known Allergies Allergy Verified 04/19/20 10:30 - Blood Blood Available: No - Anesthesia Plan Pre-Op Medication Ordered: None - Acknowledgements Anesthesia Type Planned: General Anesthesia Pt an Appropriate Candidate for the Planned Anesthesia: Yes Alternatives and Risks of Anesthesia Discussed w Pt/Guardian: Yes Pt/Guardian Understands and Agrees with Anesthesia Plan: Yes PreAnesthesia Questionnaire - Past Health History Medical/Surgical History: Denies Medical/Surgical History HEENT History: Reports: None Cardiovascular History: Reports: None Respiratory History: Reports: None Gastrointestinal History: Reports: GERD, Other (See Below) Other Gastrointestinal History: intermittent N&V Genitourinary History: Reports: UTI, 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: Reports: Dysfunctional Uterine Bleeding, Musculoskeletal History: Reports: None Neurological History: Reports: None Psychiatric History: Reports: None Endocrine/Metabolic History: Reports: Obesity/BMI 30+ (BMI 33.8) Hematologic History: Reports: None Immunologic History: Reports: None Oncologic (Cancer) History: Reports: None Dermatologic History: Reports: Psoriasis - Infectious Disease History Infectious Disease History: Reports: Chicken Pox - Past Surgical History Head Surgeries/Procedures: Reports: None HEENT Surgical History: Reports: None Cardiovascular Surgical History: Reports: None Respiratory Surgical History: Reports: None GI Surgical History: Reports: EGD Female Surgical History: Reports: Tubal Ligation Endocrine Surgical History: Reports: None Neurological Surgical History: Reports: None Musculoskeletal Surgical History: Reports: None Oncologic Surgical History: Reports: None Dermatological Surgical History: Reports: None - SUBSTANCE USE Tobacco Use Status *Q: Current Every Day Tobacco User (1 ppd) Tobacco Use Within Last Twelve Months: Cigarettes - HOME MEDS Home Medications: Home Meds Ibuprofen 800 mg PO BID PRN #30 tablet 04/19/20 [Rx] Risankizumab-Rzaa [Skyrizi] 2 injection IM ASDIRECTED 04/28/20 [History] - CURRENT (IN HOUSE) MEDS Current Meds: Current Medications Lactated Ringer's (Ringers, Lactated) 1,000 mls @ 500 mls/hr IV BOLUS QASIM Lactated Ringer's (Ringers, Lactated) 1,000 mls @ 125 mls/hr IV ASDIRECTED QASIM Sodium Chloride (Saline Flush) 2.5 ml FLUSH ASDIRECTED PRN PRN Reason: Keep Vein Open Sodium Chloride (Normal Saline) 10 ml IV ASDIRECTED PRN PRN Reason: IV Use Discontinued Medications Dexamethasone (Dexamethasone) Confirm Administered Dose 20 mg .ROUTE .STK-MED ONE Stop: 05/04/20 07:35 Fentanyl (Sublimaze) Confirm Administered Dose 250 mcg .ROUTE .STK-MED ONE Stop: 05/04/20 07:36 Cefazolin Sodium/Dextrose 1 gm (/ Premix) 50 mls @ 100 mls/hr IV ONETIME ONE Stop: 05/01/20 10:38 Lidocaine (Xylocaine-Mpf 2%) Confirm Administered Dose 5 ml .ROUTE .STK-MED ONE Stop: 05/04/20 07:35 Midazolam HCl (Versed 1 Mg/Ml) Confirm Administered Dose 2 mg .ROUTE .STK-MED ONE Stop: 05/04/20 07:36 Ondansetron HCl (Zofran) Confirm Administered Dose 4 mg .ROUTE .STK-MED ONE Stop: 05/04/20 07:35 Propofol (Diprivan 20 Ml) Confirm Administered Dose 400 mg .ROUTE .STK-MED ONE Stop: 05/04/20 07:36 Rocuronium [place] (Rocuronium [place]) Confirm Administered Dose 50 mg .ROUTE .STK-MED ONE Stop: 05/04/20 07:35
[2020-05-04] MEDS ORDERED: Fluorescein 5 ML Vial ONE (08:50)
[2020-05-04] MEDS ORDERED: diphenhydrAMINE 50 MG/ML SDV ONE (09:18)
[2020-05-04] MEDS ORDERED: Furosemide 40 MG/4 ML VIAL ONE (09:31)
[2020-05-04] MEDS ORDERED: Glycopyrrolate 0.2 MG/ML SDV ONE ×2 (09:36→09:41)
[2020-05-04] MEDS ORDERED: Ketorolac 30 MG/ML SDV ONE (10:32)
[2020-05-04] MEDS ORDERED: Octyl 2-Cyanoacrylate 1 Tube ONE (10:36)
[2020-05-04] MEDS ORDERED: Promethazine 25 MG/ML SDV IM PRN (10:43)
[2020-05-04] MEDS ORDERED: Morphine 4 MG/ML Syringe IVPUSH PRN (10:43)
[2020-05-04] MEDS ORDERED: Acetaminophen/oxyCODONE 325-5 MG Tab PO PRN (10:43)
[2020-05-04] MEDS ORDERED: Ondansetron 4 MG/2 ML SDV IVPUSH PRN (10:43)
[2020-05-04] MEDS ORDERED: Ketorolac 30 MG/ML SDV IVPUSH ONE (10:43)
--- NOTE | 2020-05-04 10:47 | PCM.OPNOTE ---
- General Post-Op/Procedure Note Date of Surgery/Procedure: 05/04/20 Operative Procedure(s): TLH,BS and Cysto Post-Op Diagnosis: Same Anesthesia Technique: General LMA Primary Surgeon: Fred Candelario EBL in mLs: 75 Complications: None Condition: Good
[2020-05-04] MEDS ORDERED: HYDROmorphone 1 MG/ML Syringe IVPUSH PRN (11:14)
[2020-05-04] MEDS ORDERED: HYDROmorphone 2 MG/ML Syringe ONE (11:20)
[2020-05-04] MEDS: fentaNYL 100 MCG/2 ML SDV IVPUSH PRN ×2 (11:48→11:53)
--- NOTE | 2020-05-04 12:24 | PCM.POSTAN ---
POST ANESTHESIA ASSESSMENT - MENTAL STATUS Mental Status: Alert, Oriented - VITAL SIGNS Vital Signs: Last Vital Signs Temp 36.4 C 05/04/20 10:48 Pulse 88 05/04/20 12:00 Resp 17 05/04/20 12:00 BP 106/74 05/04/20 12:00 Pulse Ox 93 L 05/04/20 12:00 - RESPIRATORY Respiratory Status: Respiratory Rate WNL, Airway Patent, O2 Saturation Stable - CARDIOVASCULAR CV Status: Pulse Rate WNL, Blood Pressure Stable - GASTROINTESTINAL GI Status: No Symptoms - PAIN Pain Score: 5 - POST OP HYDRATION Hydration Status: Adequate & Stable
[2020-05-04] MEDS: Acetaminophen/oxyCODONE 325-5 MG Tab PO PRN ×3 (13:21→22:30)
--- NOTE | 2020-05-04 14:03 | OR ---
SURGEON: Fred Candelario MD DATE OF PROCEDURE: 05/04/2020 PREOPERATIVE DIAGNOSES: Menometrorrhagia, pelvic pain. POSTOPERATIVE DIAGNOSES: Menometrorrhagia, pelvic pain. OPERATION PERFORMED: Diagnostic laparoscopy, total laparoscopic hysterectomy, laparoscopic bilateral salpingectomy preserving both ovary, and cystoscopy. 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 ANESTHESIA: General with endotracheal intubation, Sofia Younger and Dr. Burt. ESTIMATED BLOOD LOSS: 75 mL. COMPLICATIONS: None. FINDINGS: Pelvic adhesion from her previous section. Uterus is mildly enlarged, about 11- to 12-week size. The patient is status post bilateral tubal ligation. INDICATIONS FOR SURGERY: [place] referred to the admit note. PROCEDURE IN DETAIL: The patient was brought to the OR, properly identified, and after adequate level of anesthesia, the patient was placed in lithotomy position, prepped and draped in sterile fashion as usual with an access to the abdomen and the vagina. Garcia catheter was placed in the bladder and the [employer] manipulator placed in the uterus for manipulation. The operation shifted abdominally. Stab wound done beneath the umbilicus. The Veress was placed in the peritoneal cavity and that cavity was insufflated with sufficient amount of carbon dioxide, and then utilizing the Visiport technique, a central trocar was placed beneath the umbilicus. Once we were in the peritoneal cavity and it was safe and there was no organ injury, a 10/12 trocar placed in the left iliac fossa and a 5 mm trocar in the right iliac fossa under direct vision. Operation started by inspecting the landmark of the pelvis and the anatomy laparoscopically. Once we were familiar with all the landmark and the anatomy, the procedure started. The superior pedicle taken with the Braden Harmonic scalpel and the remnant of the tubes included with the specimen and then the broad ligament from both sides coagulated and transected and then the anterior leaf of the broad dissected downward medially, and then with sharp and blunt utilizing the Harmonic instrument, the bladder totally dissected away from the operative field and the surgeon could easily feel the manipulator through the vagina at this time. The uterine vessel was coagulated and transected utilizing the Braden Harmonic scalpel from both sides at the level of the manipulator, and once was that done, then the vaginal incision using the Harmonic scalpel was done in a circular manner at the edge of the manipulator detaching the cervix from its attachment to the vagina. The uterus and its appendages were removed vaginally and then pneumoperitoneum re-established by placing vaginal pack in the vagina. Inspection of the operative field, there showed no oozing, no bleeding. Thorough irrigation again to ascertain there was no bleeding. We proceeded to close the vaginal cuff laparoscopically using 2-0 PDS interrupted suture. While we were doing that, we asked the Anesthesia personnel to give the patient fluorescein, and after closing the vaginal cuff, the abdomen was deflated, cystoscopy was performed. The bladder was intact. Both ureteric orifices seen with the dye coming from both of them. Thus, the patency of both ureters were verified. Satisfied with this finding, the trocar was removed and then the laparoscopic incision closed in layer. The instrument and sponge count was correct. The patient tolerated the procedure well, went to recovery room in stable general condition. SUSAN / ROCKY /[id number]
[2020-05-04] MEDS ORDERED: Ketorolac 30 MG/ML SDV IVPUSH PRN (17:00)
--- NOTE | 2020-05-04 21:07 | PCM48HPAN ---
Post Anesthesia Note - EVALUATION WITHIN 48HRS OF ANESTHETIC Vital Signs in Normal Range: Yes Patient Participated in Evaluation: Yes Respiratory Function Stable: Yes Airway Patent: Yes Cardiovascular Function Stable: Yes Hydration Status Stable: Yes Pain Control Satisfactory: Yes Nausea and Vomiting Control Satisfactory: Yes Mental Status Recovered: Yes Vital Signs: Last Vital Signs Temp 37.2 C 05/04/20 20:41 Pulse 89 05/04/20 20:41 Resp 17 05/04/20 20:41 BP 110/62 05/04/20 20:41 Pulse Ox 95 05/04/20 20:41
[2020-05-05] MEDS: Acetaminophen/oxyCODONE 325-5 MG Tab PO PRN ×2 (04:32→08:37)
[2020-05-05 06:42] LABS: BLOOD UREA NITROGEN,BUN 13 mg/dL (7.0-18.0); CHLORIDE,CL 106 mmol/L (98-107); GLUCOSE RANDOM 126 mg/dL (74-106); POTASSIUM,K 4.2 mmol/L (3.5-5.1); SODIUM,NA 139 mmol/L (136-145)
[2020-05-05 06:49] LABS: CARBON DIOXIDE,CO2 25.5 mmol/L (21.0-32.0)
--- NOTE | 2020-05-05 10:03 | PCM.SURGPN ---
- General Info Date of Service: 05/05/20 POD#: 1 Functional Status: Reports: Pain Controlled - Review of Systems General: Reports: No Symptoms HEENT: Reports: No Symptoms Pulmonary: Reports: No Symptoms Cardiovascular: Reports: No Symptoms Gastrointestinal: Reports: No Symptoms Genitourinary: Reports: No Symptoms Musculoskeletal: Reports: No Symptoms Skin: Reports: No Symptoms Neurological: Reports: No Symptoms Psychiatric: Reports: No Symptoms - Patient Data Vitals - Most Recent: Last Vital Signs Temp 37.0 C 05/05/20 07:01 Pulse 72 05/05/20 07:01 Resp 19 05/05/20 07:01 BP 121/82 05/05/20 07:01 Pulse Ox 95 05/05/20 07:01 Weight - Most Recent: 83.915 kg I&O - Last 24 Hours: Intake & Output 05/04/20 05/05/20 05/05/20 22:59 06:59 14:59 Intake Total 500 1000 Output Total 1000 800 Balance -500 200 Lab Results Last 24 Hrs: Laboratory Results - last 24 hr 05/05/20 05/05/20 Range/Units 04:56 04:56 WBC 11.82 H (4.0-11.0) K/uL RBC 4.45 (4.30-5.90) M/uL Hgb 13.1 (12.0-16.0) g/dL Hct 40.5 (36.0-46.0) % MCV 91.0 (80.0-98.0) fL MCH 29.4 (27.0-32.0) pg MCHC 32.3 (31.0-37.0) g/dL RDW Std Deviation 43.3 (28.0-62.0) fl RDW Coeff of Quang 13 (11.0-15.0) % Plt Count 264 (150-400) K/uL MPV 10.20 (7.40-12.00) fL Neut % (Auto) 78.1 (48.0-80.0) % Lymph % (Auto) 15.6 L (16.0-40.0) % [place] % (Auto) 6.2 (0.0-15.0) % Eos % (Auto) 0.1 (0.0-7.0) % Baso % (Auto) 0.0 (0.0-1.5) % Neut # (Auto) 9.2 H (1.4-5.7) K/uL Lymph # (Auto) 1.8 (0.6-2.4) K/uL [place] # (Auto) 0.7 (0.0-0.8) K/uL Eos # (Auto) 0.0 (0.0-0.7) K/uL Baso # (Auto) 0.0 (0.0-0.1) K/uL Nucleated RBC % 0.0 /100WBC Nucleated RBCs # 0 K/uL Sodium 139 (136-145) mmol/L Potassium 4.2 (3.5-5.1) mmol/L Chloride 106 (98-107) mmol/L Carbon Dioxide 25.5 (21.0-32.0) mmol/L BUN 13 (7.0-18.0) mg/dL Creatinine 0.8 (0.6-1.0) mg/dL Est Cr Clr Drug Dosing 79.85 mL/min Estimated GFR (MDRD) > 60.0 ml/min Glucose 126 H (74-106) mg/dL Calcium 8.7 (8.5-10.1) mg/dL Med Orders - Current: Current Medications Lactated Ringer's (Ringers, Lactated) 1,000 mls @ 500 mls/hr IV BOLUS [facility] Last Admin: 05/04/20 08:07 Dose: 500 mls/hr Documented by: Lactated Ringer's (Ringers, Lactated) 1,000 mls @ 125 mls/hr IV ASDIRECTED [facility] Ketorolac Tromethamine (Toradol) 30 mg IVPUSH Q6H PRN PRN Reason: Pain (severe 7-10) Stop: 05/09/20 17:01 Last Admin: 05/04/20 21:21 Dose: 30 mg Documented by: Morphine Sulfate (Morphine) 4 mg IVPUSH Q2H PRN PRN Reason: Pain (severe 7-10) Ondansetron HCl (Zofran) 4 mg IVPUSH Q6H PRN PRN Reason: Nausea/Vomiting Oxycodone/Acetaminophen (Percocet 325-5 Mg) 1 tab PO Q4H PRN PRN Reason: Pain (moderate 4-6) Oxycodone/Acetaminophen (Percocet 325-5 Mg) 2 tab PO Q4H PRN PRN Reason: Pain (moderate 4-6) Last Admin: 05/05/20 08:37 Dose: 2 tab Documented by: Promethazine HCl (Phenergan) 25 mg IM Q6H PRN PRN Reason: Nausea/Vomiting Scopolamine (Transderm-Scop) 1.5 mg TRDERM Q72H PRN PRN Reason: Nausea Last Admin: 05/04/20 08:08 Dose: 1.5 mg Documented by: Sodium Chloride (Saline Flush) 2.5 ml FLUSH ASDIRECTED PRN PRN Reason: Keep Vein Open Sodium Chloride (Normal Saline) 10 ml IV ASDIRECTED PRN PRN Reason: IV Use Discontinued Medications Dexamethasone (Dexamethasone) Confirm Administered Dose 20 mg .ROUTE .STK-MED ONE Stop: 05/04/20 07:35 Diphenhydramine HCl (Benadryl) Confirm Administered Dose 50 mg .ROUTE .STK-MED ONE Stop: 05/04/20 09:19 Fentanyl (Sublimaze) Confirm Administered Dose 250 mcg .ROUTE .STK-MED ONE Stop: 05/04/20 07:36 Fentanyl (Sublimaze) 50 mcg IVPUSH Q5M PRN PRN Reason: Pain (severe 7-10) Stop: 05/05/20 09:47 Last Admin: 05/04/20 11:53 Dose: 50 mcg Documented by: Fluorescein Sodium (Ak-Fluor) Confirm Administered Dose 5 ml .ROUTE .STK-MED ONE Stop: 05/04/20 08:51 Furosemide (Lasix) Confirm Administered Dose 40 mg .ROUTE .STK-MED ONE Stop: 05/04/20 09:32 Glycopyrrolate (Robinul) Confirm Administered Dose 0.2 mg .ROUTE .STK-MED ONE Stop: 05/04/20 09:37 Glycopyrrolate (Robinul) Confirm Administered Dose 0.4 mg .ROUTE .STK-MED ONE Stop: 05/04/20 09:42 Hydromorphone HCl (Dilaudid) 1 mg IVPUSH ONETIME PRN PRN Reason: pain Hydromorphone HCl (Dilaudid) Confirm Administered Dose 2 mg .ROUTE .STK-MED ONE Stop: 05/04/20 11:21 Last Admin: 05/04/20 11:23 Dose: 1 mg Documented by: Cefazolin Sodium/Dextrose 1 gm (/ Premix) 50 mls @ 100 mls/hr IV ONETIME ONE Stop: 05/01/20 10:38 Ketorolac Tromethamine (Toradol) Confirm Administered Dose 30 mg .ROUTE .STK-MED ONE Stop: 05/04/20 10:33 Ketorolac Tromethamine (Toradol) 30 mg IVPUSH ONETIME ONE Stop: 05/04/20 10:44 Last Admin: 05/04/20 10:33 Dose: Not Given Documented by: Lidocaine (Xylocaine-Mpf 2%) Confirm Administered Dose 5 ml .ROUTE .STK-MED ONE Stop: 05/04/20 07:35 Midazolam HCl (Versed 1 Mg/Ml) Confirm Administered Dose 2 mg .ROUTE .STK-MED ONE Stop: 05/04/20 07:36 Octyl Cyanoacrylate (Dermabond Advance) Confirm Administered Dose 1 applic .ROUTE .STK-MED ONE Stop: 05/04/20 10:37 Ondansetron HCl (Zofran) Confirm Administered Dose 4 mg .ROUTE .STK-MED ONE Stop: 05/04/20 07:35 Propofol (Diprivan 20 Ml) Confirm Administered Dose 400 mg .ROUTE .STK-MED ONE Stop: 05/04/20 07:36 Propofol (Diprivan 20 Ml) Confirm Administered Dose 200 mg .ROUTE .STK-MED ONE Stop: 05/04/20 09:57 Rocuronium Winn (Rocuronium Winn) Confirm Administered Dose 50 mg .ROUTE .STK-MED ONE Stop: 05/04/20 07:35 - Exam Wound/Incisions: Healing Well General: Alert, Oriented HEENT: Pupils Equal Neck: Supple Lungs: Clear to Auscultation, Normal Respiratory Effort Cardiovascular: Regular Rate, Regular Rhythm GI/Abdominal Exam: Normal Bowel Sounds, Soft, Non-Tender, No Organomegaly, No Distention, No Abnormal Bruit, No Mass, Pelvis Stable Extremities: Normal Inspection, Normal Range of Motion, Non-Tender, No Pedal Edema, Normal Capillary Refill Skin: Warm, Dry, Intact Neurological: No New Focal Deficit Psy/Mental Status: Alert, Normal Affect, Normal Mood Sepsis Event Note - Evaluation Sepsis Screening Result: No Definite Risk - Focused Exam Vital Signs: Vital Signs Temp Pulse Resp BP Pulse Ox 05/05/20 07:01 37.0 C 72 19 121/82 95 05/05/20 04:35 37.0 C 69 15 109/56 L 95 05/05/20 01:12 36.9 C 84 15 108/65 96 - Problem List Review Problem List Initiated/Reviewed/Updated: Yes - My Orders Last 24 Hours: Active Orders 24 hr Category Date Time Status Patient Status [ADT] Routine ADT 05/04/20 10:43 Active Antiembolic Devices [RC] PER UNIT ROUTINE Care 05/04/20 10:44 Active Notify Provider Vital Signs [RC] ASDIRECTED Care 05/04/20 10:43 Active Oxygen Therapy [RC] ASDIRECTED Care 05/04/20 09:47 Active Oxygen Therapy [RC] ASDIRECTED Care 05/04/20 10:43 Active RT Incentive Spirometry [RC] Q2HWA Care 05/04/20 10:43 Active Up With Assistance [RC] PER UNIT ROUTINE Care 05/04/20 10:43 Active Up ad [place] [RC] PER UNIT ROUTINE Care 05/04/20 10:43 Active Urinary Catheter Removal [RC] Per Unit Routine Care 05/04/20 10:43 Active Vital Signs [RC] PER UNIT ROUTINE Care 05/04/20 10:43 Active Regular Diet [DIET] Diet 05/04/20 Lunch Active Acetaminophen/oxyCODONE [Percocet 325-5 MG] Med 05/04/20 10:43 Active 1 tab PO Q4H PRN Acetaminophen/oxyCODONE [Percocet 325-5 MG] Med 05/04/20 10:43 Active 2 tab PO Q4H PRN Ketorolac [Toradol] Med 05/04/20 17:00 Active 30 mg IVPUSH Q6H PRN Morphine Med 05/04/20 10:43 Active 4 mg IVPUSH Q2H PRN Ondansetron [Zofran] Med 05/04/20 10:43 Active 4 mg IVPUSH Q6H PRN Promethazine [Phenergan] Med 05/04/20 10:43 Active 25 mg IM Q6H PRN Peripheral IV Discontinue [OM.PC] Routine Oth 05/04/20 10:43 Ordered Sequential Compression Device [OM.PC] Per Unit Routine Oth 05/04/20 10:43 Ordered Resuscitation Status Routine Resus Stat 05/04/20 10:43 Ordered Medication Orders Lactated Ringer's (Ringers, Lactated) 1,000 mls @ 500 mls/hr IV BOLUS QASIM Last Admin: 05/04/20 08:07 Dose: 500 mls/hr Documented by: HANSEL Lactated Ringer's (Ringers, Lactated) 1,000 mls @ 125 mls/hr IV ASDIRECTED [facility] Ketorolac Tromethamine (Toradol) 30 mg IVPUSH Q6H PRN PRN Reason: Pain (severe 7-10) Stop: 05/09/20 17:01 Last Admin: 05/04/20 21:21 Dose: 30 mg Documented by: ALTON Morphine Sulfate (Morphine) 4 mg IVPUSH Q2H PRN PRN Reason: Pain (severe 7-10) Ondansetron HCl (Zofran) 4 mg IVPUSH Q6H PRN PRN Reason: Nausea/Vomiting Oxycodone/Acetaminophen (Percocet 325-5 Mg) 1 tab PO Q4H PRN PRN Reason: Pain (moderate 4-6) Oxycodone/Acetaminophen (Percocet 325-5 Mg) 2 tab PO Q4H PRN PRN Reason: Pain (moderate 4-6) Last Admin: 05/05/20 08:37 Dose: 2 tab Documented by: KENDY Whelanigned by: ANA LUISA Admin: 05/05/20 04:32 Dose: 2 tab Documented by: Admin: 05/04/20 22:30 Dose: 2 tab Documented by: Admin: 05/04/20 17:54 Dose: 2 tab Documented by: ANA LUISA Admin: 05/04/20 13:21 Dose: 2 tab Documented by: ANA LUISA Promethazine HCl (Phenergan) 25 mg IM Q6H PRN PRN Reason: Nausea/Vomiting Scopolamine (Transderm-Scop) 1.5 mg TRDERM Q72H PRN PRN Reason: Nausea Last Admin: 05/04/20 08:08 Dose: 1.5 mg Documented by: HANSEL Sodium Chloride (Saline Flush) 2.5 ml FLUSH ASDIRECTED PRN PRN Reason: Keep Vein Open Sodium Chloride (Normal Saline) 10 ml IV ASDIRECTED PRN PRN Reason: IV Use - Assessment Assessment (Free Text/Narrative):: Status post laparoscopic hysterectomy postoperative day #1 the patient is doing well is voiding without any problem she is passing gas she is on regular diet her H&H is stable - Plan Plan (Free Text/Narrative):: The patient will be sent home today the post hysterectomy instruction there is no restriction on her diet the patient instructed the today, bath or shower as she needed. He was given a prescription of Dahinda 5/325 for postoperative pain and she is to come to the office for late postoperative exam in one week
== END 2020-05-05 11:05 | disposition home or self-care (01) ==
LOC: MW.SDS 07:19 → MW.MS 10:55 → MW.SDS 05-05 11:05
PROVIDERS: ATTEND Obstetrics & Gynecology
DX: N88.8 Other specified noninflammatory disorders of cervix uteri (principal); N92.1 Excessive and frequent menstruation with irregular cycle; F17.210 Nicotine dependence, cigarettes, uncomplicated; E66.9 Obesity, unspecified; Z79.899 Other long term (current) drug therapy; Z98.890 Other specified postprocedural states; Z68.33 Body mass index [BMI] 33.0-33.9, adult
CPT/HCPCS: 36415; 58571; 80048; 84703; 85025; 85027; 86850; 86900; 86901; A9270; J1100; J1170; J1200; J1885; J1940; J2250; J2704; J3010; J3490; J7120; 88307; J2405

== ENCOUNTER 2020-08-22 19:43 | Emergency (ER) | payer MEDICAID ==
[2020-08-22] MEDS ORDERED: Diphtheria,Pertussis(Acell),Tetanus Vaccine 0.5 ML Syringe IM ONE (20:33)
[2020-08-22] MEDS ORDERED: Bacitracin Oint 1 GM U/D Packet TOP ONE (20:33)
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
== END 2020-08-22 21:11 | disposition home or self-care (01) ==
LOC: MW.ED 19:43
DX: T23.222A Burn of second degree of single left finger (nail) except thumb, initial encounter (principal); T23.221A Burn of second degree of single right finger (nail) except thumb, initial encounter; Z72.0 Tobacco use; Z23 Encounter for immunization; E66.9 Obesity, unspecified; Z68.30 Body mass index [BMI] 30.0-30.9, adult
CPT/HCPCS: 16020; 90471; 90715; 99283-25

== ENCOUNTER 2020-09-06 16:12 | Emergency (ER) | payer MEDICAID ==
[2020-09-06] MEDS ORDERED: Lidocaine 1% PF 2 ML SDV INJECT ONE (17:33)
[2020-09-06] MEDS ORDERED: Bacitracin Oint 1 GM U/D Packet TOP ONE (17:34)
--- NOTE | 2020-09-06 17:48 | EDM.PDOC ---
ED HPI GENERAL MEDICAL PROBLEM - General Chief Complaint: Skin Complaint Stated Complaint: RIGHT HAND HAS A HOLE IN THE FINGER FROM A PIERCIN Time Seen by Provider: 09/06/20 17:32 Source of Information: Reports: Patient History Limitations: Reports: No Limitations - History of Present Illness INITIAL COMMENTS - FREE TEXT/NARRATIVE: HISTORY AND PHYSICAL: History of present illness: Patient is a 30-year-old female who presents to the emergency room with complaints of an infected subdermal piercing to her left 3rd digit. Patient had the piercing planted 3 months ago and states "I have had problems ever since". She states she has noticed drainage coming from the piercing site and has some skin breakdown showing part of the piercing trying to erupt from the skin over the past few days. She states she has been trying to pick at it to remove it herself, unsuccessful. Patient denies any fever, chills, headache, change in vision, syncope or near syncope. Denies any chest pain, back pain, shortness of breath or cough. Denies any abdominal pain, nausea, vomiting, diarrhea, constipation or dysuria. Has not noted any blood in urine or stool. Patient has been eating and drinking appropriately. Tetanus has been updated within the last month. Review of systems: As per history of present illness and below otherwise all systems reviewed and negative. Past medical history: As per history of present illness and as reviewed below otherwise noncontributory. Surgical history: As per history of present illness and as reviewed below otherwise noncontributory. Social history: See social history for further information Family history: As per history of present illness and as reviewed below otherwise noncontributory. Physical exam: General: Well developed and well nourished 30-year-old female. Alert and orientated x 3. Nontoxic in appearance and in no acute distress. Vital signs are stable and have been reviewed by me. Nursing notes were reviewed. HEENT: Atraumatic, normocephalic, pupils equal and reactive bilaterally, negative for conjunctival pallor or scleral icterus, mucous membranes moist, trachea midline. No drooling or trismus noted. No meningeal signs. No hot potato voice noted. Lungs: Clear to auscultation bilaterally. No wheezes, rales, or rhonchi. Heart: S1S2, regular rate and rhythm without overt murmur, gallops, or rubs. No JVD. No peripheral edema Abdomen: Soft, nondistended, nontender. Skin: Patient has an anterior dermal piercing of her proximal left 3rd digit with the base erupting from the skin. There is surrounding erythema and crusty drainage noted. Remaining skin is intact, warm, dry. No lesions or rashes noted. Hematologic: No petechiae or purpra. Mucosa appropriate color and normal nail bed color and refill. Extremities: See skin for details. Atraumatic, moves all extremities per self without difficulty or deficits, good flexion and extension of the fingers. Cap refill less than 3 seconds. Neurovascular unremarkable. Neuro: Awake, alert, oriented. Cranial nerves II through XII unremarkable. Cerebellum unremarkable. Motor and sensory unremarkable throughout. Exam nonfocal. Psychiatric: Mood and affect are appropriate. Normal thought process. Answering questions appropriately. Notes: *This patient was seen and evaluated during the 2019 SARS-CoV-2 novel coronavirus pandemic period. Community viral transmission is ongoing at time of this encounter and the emergency department is operating under pandemic response procedures. Patient is a 30-year-old female who presents to the emergency room with compla ints of a subdermal infected piercing that is at the base of her proximal left 3rd digit. The base of the piercing has erupted from the skin and is erythematous with drainage noted. She is requesting that it be removed as it is working its way out by itself and she states it is very painful. States she hits it on things during work causing increased pain and "probably damage". We discussed treatment options, will remove the foreign body. 1% lidocaine was used to anesthetize the area. Area was thoroughly cleansed with chlorhexidine and wound wash. An 11 blade was used to make a small incision at the piercing entrance site and the base of the piercing where it is erupting already from the skin. This was easily removed without any difficulty. The site was thoroughly cleansed and irrigated with wound wash and chlorhexidine. Bacitracin dressing was applied. I have talked with the patient about today's findings, in addition to providing specific details for plan of care. No concern for , will place on antibiotics. Reassessment at the time of disposition demonstrates that the patient is in no acute distress. The patient is stable for discharge, counseling was provided and we discussed in great detail signs and symptoms that would prompt them to return to the Emergency Department. Medication, follow up and supportive care measures were reviewed and discussed. Voices understanding and is agreeable to plan of care. Denies any further questions or concerns at this time. Diagnostics: None Therapeutics: Lidocaine, bacitracin Prescription: Bactrim Impression: Infected piercing Plan: 1. You were evaluated today on an emergent basis. Your dermal piercing was infected and needed to be removed. Please keep the skin clean and dry. Wash gently with mild soap and water at least twice daily. Take the antibiotic as directed. 2. You can alternate Tylenol and ibuprofen as needed for pain and fever management. 3. We encourage you to follow up with your primary care provider and/or recommended specialist in the next few days for re-evaluation and further care/management. 4. If your symptoms should worsen, new symptoms develop or any of the signs and symptoms we discussed should arise please return to the emergency room or call 911 (if needed). Definitive disposition and diagnosis as appropriate pending reevaluation and review of above. left middle finger Pain Score (Numeric/FACES): 4 - Related Data Allergies Allergy/AdvReac Type Severity Reaction Status Date / Time No Known Allergies Allergy Verified 09/06/20 17:33 Home Meds: Home Meds Ibuprofen 800 mg PO BID PRN #30 tablet 04/19/20 [Rx] Risankizumab-Rzaa [Skyrizi] 2 injection IM ASDIRECTED 04/28/20 [History] Sulfamethoxazole/Trimethoprim [Bactrim Ds Tablet] 1 each PO BID 7 Days #14 tablet 09/06/20 [Rx] Past Medical History - Past Health History Medical/Surgical History: Denies Medical/Surgical History HEENT History: Reports: None Cardiovascular History: Reports: None Respiratory History: Reports: None Gastrointestinal History: Reports: GERD, Other (See Below) Other Gastrointestinal History: intermittent N&V Genitourinary History: Reports: UTI, Recurrent SOLO[employer] DANCER History: Reports: Dysfunctional Uterine Bleeding, Musculoskeletal History: Reports: None Neurological History: Reports: None Psychiatric History: Reports: None Endocrine/Metabolic History: Reports: Obesity/BMI 30+ Hematologic History: Reports: None Immunologic History: Reports: None Oncologic (Cancer) History: Reports: None Dermatologic History: Reports: Psoriasis - Infectious Disease History Infectious Disease History: Reports: Chicken Pox - Past Surgical History Head Surgeries/Procedures: Reports: None HEENT Surgical History: Reports: None Cardiovascular Surgical History: Reports: None Respiratory Surgical History: Reports: None GI Surgical History: Reports: EGD Female Surgical History: Reports: Tubal Ligation Endocrine Surgical History: Reports: None Neurological Surgical History: Reports: None Musculoskeletal Surgical History: Reports: None Oncologic Surgical History: Reports: None Dermatological Surgical History: Reports: None Social & Family History - Family History Family Medical History: No Pertinent Family History - Caffeine Use Caffeine Use: Reports: Coffee ED ROS GENERAL - Review of Systems Review Of Systems: Comprehensive ROS is negative, except as noted in HPI. ED EXAM, SKIN/RASH Exam: See Below (See dictation) ED SKIN PROCEDURES - Foreign Body Removal Indication:: Left third digit, base of finger Consent Obtained:: Patient Performing Doctor:: Onur Castillo Anesthesia Type: Local Findings:: Easily removed after 11 blade made small connecting incision, see NOTE. Complications:: No Course - Vital Signs Last Recorded V/S: Last Vital Signs Temp 97.4 F 09/06/20 17:30 Pulse 74 09/06/20 17:30 Resp 18 09/06/20 17:30 BP 133/79 09/06/20 17:30 Pulse Ox 99 09/06/20 17:30 - Orders/Labs/Meds Meds: Medications Discontinued Medications Generic Name Dose Route Start Last Admin Trade Name Steve PRN Reason Stop Dose Admin Bacitracin 1 dose 09/06/20 17:34 09/06/20 17:58 Bacitracin Oint 1 Gm U/D Packet TOP 09/06/20 17:35 1 dose ONETIME ONE Administration Lidocaine HCl 2 ml 09/06/20 17:33 09/06/20 17:59 Lidocaine 1% Pf 2 Ml Sdv INJECT 09/06/20 17:34 2 ml ONETIME ONE Administration Departure - Departure Time of Disposition: 18:04 Disposition: Home, Self-Care 01 Clinical Impression: Infected foreign body in left hand Qualifiers: Encounter type: initial encounter Qualified Code(s): S60.552A - Superficial foreign body of left hand, initial encounter; L08.9 - Local infection of the skin and subcutaneous tissue, unspecified - Discharge Information Prescriptions: Sulfamethoxazole/Trimethoprim [Bactrim Ds Tablet] 1 each PO BID 7 Days #14 tablet Instructions: Skin Foreign Body Referrals: PCP,None [Primary Care Provider] - Forms: ED Department Discharge Additional Instructions: The following information is given to patients seen in the emergency department who are being discharged to home. This information is to outline your options for follow-up care. We provide all patients seen in our emergency department with a follow-up referral. The need for follow-up, as well as the timing and circumstances, are variable depending upon the specifics of your emergency department visit. If you don't have a primary care physician on staff, we will provide you with a referral. We always advise you to contact your personal physician following an emergency department visit to inform them of the circumstance of the visit and for follow-up with them and/or the need for any referrals to a consulting specialist. The emergency department will also refer you to a specialist when appropriate. This referral assures that you have the opportunity for follow-up care with a specialist. All of these measure are taken in an effort to provide you with optimal care, which includes your follow-up. Under all circumstances we always encourage you to contact your private physician who remains a resource for coordinating your care. When calling for follow-up care, please make the office aware that this follow-up is from your recent emergency room visit. If for any reason you are refused follow-up, please contact the [facility] at and asked to speak to the emergency department charge nurse. [facility] [address] [place] [id number] [place] [id number] Thank you for choosing the [facility] emergency department in [place] for your medical needs today. It was a pleasure caring for you. Today you were seen in the emergency department for skin infection. 1. You were evaluated today on an emergent basis. Your dermal piercing was infected and needed to be removed. Please keep the skin clean and dry. Wash gently with mild soap and water at least twice daily. Take the antibiotic as directed. 2. You can alternate Tylenol and ibuprofen as needed for pain and fever management. 3. We encourage you to follow up with your primary care provider and/or recommended specialist in the next few days for re-evaluation and further care/management. 4. If your symptoms should worsen, new symptoms develop or any of the signs and symptoms we discussed should arise please return to the emergency room or call 911 (if needed). Sepsis Event Note (ED) - Evaluation Sepsis Screening Result: No Definite Risk - Focused Exam Vital Signs: Vital Signs Temp Pulse Resp BP Pulse Ox 09/06/20 17:30 97.4 F 74 18 133/79 99
== END 2020-09-06 18:14 | disposition home or self-care (01) ==
LOC: MW.ED 16:12
DX: S60.453A Superficial foreign body of left middle finger, initial encounter (principal); L08.9 Local infection of the skin and subcutaneous tissue, unspecified; E66.9 Obesity, unspecified; Z68.30 Body mass index [BMI] 30.0-30.9, adult; W26.8XXA Contact with other sharp object(s), not elsewhere classified, initial encounter
CPT/HCPCS: 10120; 99283-25

== ENCOUNTER 2022-06-13 06:22 | Emergency (ER) | payer MEDICAID ==
[2022-06-13] MEDS ORDERED: Sulfamethoxazole/Trimethoprim 800-160 MG Tab PO ONE (07:51)
[2022-06-13] MEDS ORDERED: Ibuprofen 600 MG Tab PO ONE (07:51)
== END 2022-06-13 08:12 | disposition home or self-care (01) ==
LOC: MW.ED 06:22
DX: L03.811 Cellulitis of head [any part, except face] (principal); L40.9 Psoriasis, unspecified; E66.9 Obesity, unspecified; Z68.31 Body mass index [BMI] 31.0-31.9, adult
CPT/HCPCS: 99283; A9270

== ENCOUNTER 2023-03-18 11:00 | Emergency (ER) | payer BC, MEDICAID ==
[2023-03-18] MEDS ORDERED: Famotidine 20 MG/2 ML SDV IVPUSH ONE (11:03)
[2023-03-18] MEDS ORDERED: Sodium Chloride 0.9% 1,000 ML IV ONE (11:03)
[2023-03-18] MEDS ORDERED: diphenhydrAMINE 50 MG/ML SDV IVPUSH ONE (11:04)
[2023-03-18] MEDS ORDERED: methylPREDNISolone Sodium Succinate 125 MG/2 ML SDV IVPUSH ONE (11:04)
== END 2023-03-18 12:47 | disposition home or self-care (01) ==
LOC: MW.ED 11:00
DX: R20.2 Paresthesia of skin (principal); T42.6X5A Adverse effect of other antiepileptic and sedative-hypnotic drugs, initial encounter; E66.9 Obesity, unspecified; Z68.33 Body mass index [BMI] 33.0-33.9, adult
CPT/HCPCS: 96361; 96374; 96375; 99283; J1200; J2930; J3490; J7030; 99284

== ENCOUNTER 2024-01-10 12:53 | Emergency (ER) | payer MEDICAID ==
[2024-01-10 13:14] LABS: BASOPHILS ABSOLUTE AUTO 0.06 K/uL (0.00-0.20); BASOPHILS PERCENT AUTO 0.7 % (0.0-1.0); EOSINOPHILS ABSOLUTE AUTO 0.32 K/uL (0.00-0.45); EOSINOPHILS PERCENT AUTO 3.5 % (0.0-6.0); HEMATOCRIT 42.7 % (37.0-47.0); HEMOGLOBIN 14.2 g/dL (12.0-16.0); IMMATURE GRAN ABSOLUTE AUTO 0.04 K/uL (0.00-0.05); IMMATURE GRAN PERCENT AUTO 0.4 % (0.0-0.4); LYMPHOCYTES ABSOLUTE AUTO 1.95 K/uL (1.00-4.80); LYMPHOCYTES PERCENT AUTO 21.6 % (24.0-44.0); MEAN CORPUSCULAR HEMOGLOBIN 30.1 pg (28.0-32.0); MEAN CORPUSCULAR HGB CONC 33.3 g/dL (32.0-36.0); MEAN CORPUSCULAR VOLUME 90.7 fL (83.0-99.0); MONOCYTES ABSOLUTE AUTO 0.64 K/uL (0.00-0.80); MONOCYTES PERCENT AUTO 7.1 % (0.0-8.0); NEUTROPHILS ABSOLUTE AUTO 6.03 K/uL (1.80-7.70); NEUTROPHILS PERCENT AUTO 66.7 % (41.0-71.0); PLATELET COUNT,PLT 265 K/uL (150-400); RED BLOOD CELL COUNT 4.71 M/uL (4.10-5.30); WHITE BLOOD CELL COUNT,WBC 9.04 K/uL (3.9-11.3)
[2024-01-10] MEDS: Albuterol/Ipratropium 3.0-0.5 MG/3 ML Neb Soln NEB STA (13:16)
[2024-01-10 13:40] LABS: A/G RATIO 0.9 (0.9-1.6); ALBUMIN 3.8 g/dL (3.4-5.0); BILIRUBIN TOTAL 0.3 mg/dL (0.2-1.0); CALCIUM 9.5 mg/dL (8.5-10.1); CARBON DIOXIDE,CO2 28.2 mmol/L (21.0-32.0); CREATININE 0.8 mg/dL (0.6-1.0); EST CRCL DRUG DOSING (CG) 81.19 mL/min; POTASSIUM,K 4.6 mmol/L (3.5-5.1); PROTEIN TOTAL,TP 8.1 g/dL (6.4-8.2)
[2024-01-10] MEDS: methylPREDNISolone Sodium Succinate 125 MG/2 ML SDV IVPUSH STA (13:45)
[2024-01-10] MEDS: Sodium Chloride 0.9% 10 ML Syringe FLUSH PRN (13:45)
[2024-01-10] MEDS: Sodium Chloride 0.9% 2.5 ML Syringe FLUSH PRN (13:45)
== END 2024-01-10 13:59 | disposition home or self-care (01) ==
LOC: MW.ED 12:53
DX: J20.9 Acute bronchitis, unspecified (principal); E66.9 Obesity, unspecified; Z87.891 Personal history of nicotine dependence; Z79.2 Long term (current) use of antibiotics; Z79.899 Other long term (current) drug therapy; Z75.8 Other problems related to medical facilities and other health care; Z68.31 Body mass index [BMI] 31.0-31.9, adult
CPT/HCPCS: 36415; 80053; 83690; 83735; 84484; 84703; 85025; 93005; 94640; 96374; 99285; J2919; J3490; 93010; J7620-GY

== ENCOUNTER 2024-07-14 05:28 | Emergency (ER) | payer SELFPAY ==
[2024-07-14] MEDS: Amoxicillin/Clavulanate K 500-125 MG Tab PO ONE (05:42)
[2024-07-14] MEDS: Amoxicillin/Clavulanate K 875-125 MG Tab PO ONE (05:45)
[2024-07-14] MEDS: Ibuprofen 600 MG Tab PO ONE (05:45)
[2024-07-14] MEDS: Acetaminophen/HYDROcodone 325-5 MG Tab PO ONE (05:46)
== END 2024-07-14 06:00 | disposition home or self-care (01) ==
LOC: MW.ED 05:28
DX: K04.7 Periapical abscess without sinus (principal); L40.9 Psoriasis, unspecified; E66.9 Obesity, unspecified
CPT/HCPCS: 99282; A9270; 99283

== ENCOUNTER 2024-07-28 04:07 | Emergency (ER) | payer SELFPAY ==
[2024-07-28] MEDS: Lidocaine 2% Viscous Solution 15 ML UD PO ONE (04:21)
[2024-07-28] MEDS: Benzocaine 20% Topical Spray UD MUCMEM ONE (04:21)
[2024-07-28] MEDS ORDERED: HYDROmorphone 0.5 MG/0.5 ML Syringe IVPUSH ONE (04:39)
[2024-07-28] MEDS: Ibuprofen 800 MG Tab PO ONE (04:46)
[2024-07-28] MEDS: HYDROmorphone 1 MG/ML Syringe IM ONE (04:46)
== END 2024-07-28 05:39 | disposition home or self-care (01) ==
LOC: MW.ED 04:07
DX: K02.9 Dental caries, unspecified (principal); E66.9 Obesity, unspecified; Z75.3 Unavailability and inaccessibility of health-care facilities; Z79.899 Other long term (current) drug therapy
CPT/HCPCS: 96372; 99282; A9270; J1171

== ENCOUNTER 2024-12-13 13:43 | Emergency (ER) | payer MEDICAID | END 2024-12-13 16:44 | disposition home or self-care (01) | LOC: MW.ED 13:43 | DX: S02.5XXA Fracture of tooth (traumatic), initial encounter for closed fracture (principal); K02.9 Dental caries, unspecified; E66.9 Obesity, unspecified; X58.XXXA Exposure to other specified factors, initial encounter | CPT/HCPCS: 99282 ==